=== PATIENT | male | born 1990 | race Caucasian/White ===

== ENCOUNTER 2023-10-13 15:30 | Emergency (ER) | payer BC ==
[~2023-10-13] VITALS: Ht 167.6 cm; Wt 56.5 kg
[2023-10-13 15:36] VITALS: BP 138/77; PULSE 89; RESP 16; TEMP 98.2; O2SAT 98
[2023-10-13] MEDS ORDERED: CEPH-585 PO (15:54)
[2023-10-13] MEDS: cephalexin 250mg capsule PO ONE (16:03)
== END 2023-10-13 16:12 | disposition home or self-care (01) ==
LOC: ER 15:31
DX: L02.415 Cutaneous abscess of right lower limb (principal)
CPT/HCPCS: 99283

== ENCOUNTER 2024-01-08 16:07 | Emergency (ER) | payer BC ==
[~2024-01-08] VITALS: Ht 170.2 cm; Wt 59.3 kg
[2024-01-08 16:12] VITALS: TEMP 97.6
[2024-01-08 16:32] LABS: BASOPHILS % (AUTO) 0.3 % (0-1); EOSINOPHILS % (AUTO) 0.1 % (0-6); HEMATOCRIT 43.4 % (42.0-52.0); HEMOGLOBIN 14.9 g/dl (14.0-17.9); LYMPHOCYTES # (AUTO) 1.6 X10'3 (1.1-4.8); LYMPHOCYTES % (AUTO) 18.4 % (21-51); MEAN CORPUSCULAR HEMOGLOBIN 32.5 PG (27.0-31.0); MEAN CORPUSCULAR HGB CONC 34.2 g/dL (33.0-36.5); MEAN CORPUSCULAR VOLUME 94.9 FL (78-98); MEAN PLATELET VOLUME 7.8 FL (7.4-10.4); MONOCYTES # (AUTO) 0.5 X10'3 (0-0.9); MONOCYTES % (AUTO) 5.4 % (2-12); NEUTROPHILS # (AUTO) 6.4 X10'3 (1.8-7.7); NEUTROPHILS % (AUTO) 75.8 % (42-75); PLATELET COUNT 290 X10'3 (140-440); RED BLOOD COUNT 4.57 X10'6 (4.70-6.10); RED CELL DISTRIBUTION WIDTH 13.2 % (11.5-14.5); WHITE BLOOD COUNT 8.5 X10'3 (4.5-11.0)
[2024-01-08 17:04] LABS: ALBUMIN 4.3 G/DL (3.4-5.0); ANION GAP 7 (8-16); BLOOD UREA NITROGEN 17 MG/DL (7-18); BUN/CREATININE RATIO 19.3 (10.0-20.0); CALCIUM 9.3 MG/DL (8.5-10.1); CHLORIDE 105 MMOL/L (99-107); CREATININE 0.88 MG/DL (0.60-1.10); GLUCOSE 91 MG/DL (70-104); POTASSIUM 4.1 MMOL/L (3.5-5.1); PRO BRAIN NATRIURETIC PEPTIDE < 30 PG/ML (0-125); SODIUM 141 MMOL/L (135-145); TOTAL CARBON DIOXIDE 29.1 MMOL/L (24-32); eCRCL 99 ML/MIN; eGFR > 90 ML/MIN
[2024-01-08 17:48] VITALS: BP 125/84; PULSE 88; RESP 16; O2SAT 96
== END 2024-01-08 17:56 | disposition home or self-care (01) ==
LOC: ER 16:07
DX: R07.9 Chest pain, unspecified (principal)
CPT/HCPCS: 36415; 71045; 80048; 83880; 84484; 85025; 93005; 99285

== ENCOUNTER 2024-07-03 17:43 | Emergency (ER) | payer BC ==
[~2024-07-03] VITALS: Ht 170.2 cm; Wt 47.6 kg
[2024-07-03] MEDS ORDERED: AZIT250T83 PO (18:39)
[2024-07-03] MEDS ORDERED: PROM118S5 PO (18:39)
[2024-07-03] MEDS ORDERED: ALBU8HFA INH (18:39)
[2024-07-03] MEDS: dextrose 50%-water 50ml dispensing syringe IV ONE (18:46)
[2024-07-03 18:53] VITALS: BP 129/83; PULSE 90; RESP 16; TEMP 99.5; O2SAT 99
== END 2024-07-03 18:57 | disposition home or self-care (01) ==
LOC: ER 17:43
DX: J22 Unspecified acute lower respiratory infection (principal)
CPT/HCPCS: 71045; 99283